=== PATIENT | female | born 1985 | race African-American/Black ===

== ENCOUNTER 2017-02-27 09:02 | Emergency (ER) | payer MEDICAID ==
[~2017-02-27] VITALS: Ht 154.9 cm; Wt 84.4 kg
[~2017-02-27 09:02] MED LIST: ATIVAN1 MG ORAL; ERYTHROMYCIN3.5 GM RIGHT EYE; IBUPROFEN600 MG ORAL; KLONOPIN1 MG ORAL; MAGIC MOUTH WAS60 ML *; NKM; PHENERGAN6.25 MG/5 ORAL; PROMETHAZINE-C118 M1 ORAL; TAMIFLU75 MG ORAL; ZOFRAN ODT4 MG ORAL
[2017-02-27 09:15] VITALS: BP 147/94
[2017-02-27] MEDS ORDERED: AMOXICILLIN500 MG ORAL (09:56)
[2017-02-27] MEDS ORDERED: IBUPROFEN600 MG ORAL (09:56)
--- NOTE | 2017-02-27 09:58 | Emergency Room Report ---
History of Present Illness General Chief Complaint: Flu Like Symptoms Source: Patient Present Illness HPI Patient presents with complaints of sore throat ongoing for the past 7 days pain is worse with swallowing Patient also feels pressure behind both ears and has noticed discharge from the left eye Denies any fevers or chills denies any neck pain or photophobia Pain is 5/10 Denies any posterior neck pain Denies any headache denies any other recent travel Allergies: Coded Allergies: ACETAMINOPHEN (Unverified Allergy, Unknown, 04/12/15) Patient History Past Medical History: see triage record Pertinent Family History: none Last Menstrual Period: 12/27/2016 Now: No Reviewed Nursing Documentation: PMH: Agreed, PSxH: Agreed Nursing Documentation-PMH Past Medical History: No History, Except For History Of Psychiatric Problem: Yes - Anxiety Review of Systems All Other Systems: negative except mentioned in HPI Physical Exam Vital Signs Date Time Temp Pulse Resp B/P Pulse Ox O2 Delivery O2 Flow Rate FiO2 02/27/17 09:15 65 16 147/94 99 Room Air 02/27/17 09:16 98.1 Sp02 EP Interpretation: reviewed, normal General Appearance: well appearing, no apparent distress Head: normocephalic, atraumatic Eyes: left eye other - Crusting over the left eyelashes mild conjunctival erythema, , bilateral eye EOMI, bilateral eye PERRL ENT: hearing grossly normal, TMs + canals normal, uvula midline, pharyngeal erythema Neck: full range of motion, supple, no meningismus, no bony tend Respiratory: lungs clear, normal breath sounds, no rhonchi, no respiratory distress, no retraction, no accessory muscle use Cardiovascular #1: normal peripheral pulses, regular rate, rhythm, no edema, no gallop, no JVD, no murmur Gastrointestinal: normal bowel sounds, non tender, soft, no mass, no organomegaly, non-distended, no guarding, no hernia, no pulsatile mass, no rebound Genitourinary: no CVA tenderness Musculoskeletal: normal inspection Neurologic: oriented x3, responsive, dental office coordinator III-XII nml as tested, motor strength/ tone normal, sensory intact Psychiatric: mood/affect normal Skin: normal color, no rash, warm/dry, palpation normal Lymphatic: normal inspection, no adenopathy Medical Decision Making Diagnostic Impression: Primary Impression: pharyngitis ER Course Patient's clinical evaluation and description appears to be in line with pharyngitis with URI component patient is placed on antibiotics and is stable for initial conservative outpatient trial Last Vital Signs Date Time Temp Pulse Resp B/P Pulse Ox O2 Delivery O2 Flow Rate FiO2 02/27/17 09:16 98.1 65 16 147/94 99 Room Air Status: improved Disposition: HOME, SELF-CARE Condition: Stable Scripts Gentamicin Sulfate* (GENTAMICIN SULFATE*) 3.5 Gm Oint...g. 3.5 GM OP TID for 7 Days, GM Prov: SUBHASH RUBIO D.O. 02/27/17 Ibuprofen* (MOTRIN*) 600 Mg Tablet 600 MG ORAL Q8H Y for For Pain, #20 TAB 0 Refills Prov: SUBHASH RUBIO D.O. 02/27/17 Amoxicillin* (AMOXIL*) 500 Mg Capsule 500 MG ORAL THREE TIMES A DAY, #21 CAP Prov: SUBHASH RUBIO D.O. 02/27/17 Patient Instructions: Pharyngitis, [id number] Additional Instructions: Patient is provided with the discharge instructions notified to follow up with primary doctor in the next 2-3 days otherwise return to the er with any worsening symptoms. Please note that this report is being documented using [employer] technology. This can lead to erroneous entry secondary to incorrect interpretation by the dictating instrument. SUBHASH RUBIO D.O. Feb 27, 2017 09:58
[2017-02-27] MEDS ORDERED: GENTAMICIN SUL3.5 GM OP (10:00)
[2017-02-27 10:05] VITALS: BP 147/94
== END 2017-02-27 11:00 | disposition home or self-care (01) ==
LOC: EMR 09:40
DX: J02.9 Acute pharyngitis, unspecified (principal); Z88.6 Allergy status to analgesic agent
CPT/HCPCS: 99284